=== PATIENT | female | born 1960 | race Caucasian/White ===

== ENCOUNTER 2017-11-29 14:37 | Emergency (ER) | payer MEDICAID, OTHER ==
[2017-11-29 14:45] VITALS: TEMP 96.8
--- NOTE | 2017-11-29 15:17 | EDPHY ---
HPI/HX/ROS/PE/MDM Narrative: CHIEF COMPLAINT: Left groin pain HPI: The patient is a 57-year-old female with PMH significant for remote DVT who complains of left groin pain and swelling since Thursday. The patient recently drove to [place] from [place] on and had no pain prior to arrival. She denies chest pain or shortness of breath. The patient states she was treated for an intracranial bleed approximately 5 years ago. Family states that the etiology of this bleed was unclear - she had suffered some minor head trauma 18 months prior to the bleed, but no clear etiology for the bleed was identified. She is not currently on anticoagulants. No rash, no fever or chills. REVIEW OF SYSTEMS: Aside from elements discussed in the HPI, a comprehensive 10-point review of systems was reviewed and is negative. PMH: Includes history of oligodendroglioma treated with radiation and chemotherapy. Also history of intracranial bleed requiring surgery approximately 5 years ago. DVT in remote past related to . SOCIAL HISTORY: , lives in [place]. Denies drug abuse. PHYSICAL EXAM: General:Patient is alert, in no acute distress. ENT:Eyes are normal to inspection. ENT inspection normal. Neck: Normal inspection. Full range of motion. Respiratory:No respiratory distress. Breath sounds normal bilaterally. Cardiovascular: Regular rate and rhythm. Strong peripheral pulses. Normal cap refill. Abdomen:The abdomen is nontender to palpation. There are no peritoneal signs. There are normal bowel sounds. Back: Normal to inspection. No tenderness to palpation. Skin: Normal color. No rash. Warm and dry. Extremities: Normal appearance. Full range of motion. Tenderness to palpation is present in the upper medial groin. No skin changes. No abscess. Neuro: Oriented x3. Normal motor function. Normal sensory function. ED Course: 1550: US read by Dr. Cha as positive for DVT L common femoral and L iliac. Consulted with Dr. Nicole, neurosurgeon, regarding this patient. See note in MDM. 1646: Reassessed patient and discussed imaging findings. I have also discussed plan to follow up with her PCP when she returns home. She is comfortable with this plan. 1655: Consulted with pharmacy regarding anticoagulation for this patient. 1708: Reassessed patient and discussed Xarelto prescription; her first dose will be given in the ED prior to discharge. MDM: This patient presents with two complicated situations, one medical and one logistical. From a medical perspective, the patient presents with signs and sx of DVT, confirmed by US. I suspect this is related to recent long car trip. She has no signs or sx to suggest PE. She therefore is a good candidate for outpatient anticoagulant therapy. 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 This obviously raises risk of risk of recurrent bleed if placed on anticoagulation. I consulted Dr. Shirin Nicole from [facility] and discussed situation - she recommends proceeding with anticoagulation given that it has been 3-5 years. I had an extensive discussion with the patient and her regarding this risk as well as our recommendation to proceed with therapy - they are in agreement with plan and understand risks and benefits. Ideally, the patient would be started on a reversible anticoagulant, such as coumadin with a LMWH bridge, but logistically, patient is visiting from [place] and will be here for at least a month, making it difficult for her PCP to coordinate care and provide close INR monitoring. I therefore think a novel anticoagulatn such as Xarelto would be a better choice. I spent a long period of time on the phone with her insurance company to try an assess which medication would be covered, but they will apparently not cover the appropriate starting dose of Eliquis, and Xarelto will require a pre-auth letter, which I cannot provide. In discussion with the patient, we agreed on a plan to give her a dose of Xarelto here tonight, and for them to call their PCP tomorrow morning to get him on board and try to help with long-term planning. We discussed strict return precautions. Patient requested Ativan rx for anxiety. - Data Points Imaging Results: Imaging Impressions Extremity Venous Study 11/29/17 15:15 Impression: 1. Acute deep venous thrombosis involving the left common femoral, left external and common iliac veins, and possibly nonocclusive clot in the inferior aspect of the inferior vena cava. 2. Superficial thrombophlebitis involving the gastrocnemius veins in the left calf. Findings discussed with emergency department physician, Milton Burnett MD on November 29, 2017 at 3:55 p.m. Imaging: Discussed imaging studies w/ x ray consultant Radiologist, I viewed and interpreted images myself Laboratory Results: 11/29/17 11/29/17 11/29/17 16:45 15:45 15:45 WBC Pending RBC Pending Hgb Pending Hct Pending MCV Pending MCH Pending MCHC Pending RDW Pending Plt Count Pending MPV Pending Neut % (Auto) Pending Lymph % (Auto) Pending [place] % (Auto) Pending Eos % (Auto) Pending Baso % (Auto) Pending Nucleat RBC Rel Count Pending Absolute Neuts (auto) Pending Absolute Lymphs (auto) Pending Absolute Monos (auto) Pending Absolute Eos (auto) Pending Absolute Basos (auto) Pending Absolute Nucleated RBC Pending Immature Gran % Pending Immature Gran # Pending PT INR APTT Fibrinogen D-Dimer Protein C Activity Pending Protein S Activity Pending Antithrombin III Activ Pending Factor V Leiden Mutat Pending Factor V Leiden Interp Pending Fact V Leiden Review By Pending Sodium Pending Potassium Pending Chloride Pending Carbon Dioxide Pending Anion Gap Pending BUN Pending Creatinine Pending Estimated GFR Pending Glucose Pending Calcium Pending Anti-Cardiolipin IgG Ab Pending Anti-Cardiolipin IgM Ab Pending 11/29/17 15:45 WBC RBC Hgb Hct MCV MCH MCHC RDW Plt Count MPV Neut % (Auto) Lymph % (Auto) [place] % (Auto) Eos % (Auto) Baso % (Auto) Nucleat RBC Rel Count Absolute Neuts (auto) Absolute Lymphs (auto) Absolute Monos (auto) Absolute Eos (auto) Absolute Basos (auto) Absolute Nucleated RBC Immature Gran % Immature Gran # PT 12.8 SEC SEC (12.0-15.0) INR 0.94 (0.83-1.16) APTT 24.0 SEC SEC (23.0-38.0) Fibrinogen 269 mg/dL mg/dL (214-456) D-Dimer 3.16 ug/mLFEU H ug/mLFEU (0.00-0.50) Protein C Activity Protein S Activity Antithrombin III Activ Factor V Leiden Mutat Factor V Leiden Interp Fact V Leiden Review By Sodium Potassium Chloride Carbon Dioxide Anion Gap BUN Creatinine Estimated GFR Glucose Calcium Anti-Cardiolipin IgG Ab Anti-Cardiolipin IgM Ab Medications Given: Discontinued Medications Rivaroxaban (Xarelto) 15 mg PO EDNOW ONE Stop: 11/29/17 17:09 Last Admin: 11/29/17 17:14 Dose: 15 mg General Time Seen by Provider: 11/29/17 15:05 Initial Vital Signs: Initial Vital Signs Temperature (C) 36.0 C 11/29/17 14:41 Heart Rate 77 11/29/17 14:41 Respiratory Rate 16 11/29/17 14:41 Blood Pressure 132/86 H 11/29/17 14:41 O2 Sat (%) 97 11/29/17 14:41 O2 Delivery Mode Room Air Allergies/Adverse Reactions: phenytoin [From Dilantin] Allergy (Verified 11/29/17 14:39) Home Medications: Medication Instructions Recorded Keppra 11/29/17 LORazepam [Ativan (*)] 1 mg PO BID PRN #10 tab 11/29/17 Levothyroxine 11/29/17 Rivaroxaban [Xarelto 15mg (*)] 15 mg PO BID #20 tab 11/29/17 Departure - Departure Disposition: Home, Routine, Self-Care Clinical Impression: DVT (deep venous thrombosis), Dvt femoral (deep venous thrombosis) Condition: Good Instructions: Rivaroxaban (By mouth), Deep Vein Thrombosis (ED) Additional Instructions: Take Xarelto as prescribed for your DVT. Stop taking Aspirin. Take Ativan as prescribed for anxiety. Follow up with your primary care provider as soon as you return home. Return to the emergency department for worsening pain, chest pain, shortness of breath, swelling, numbness, weakness or other concerns. Referrals: [facility],. [Clinic] - As per Instructions Prescriptions: LORazepam [Ativan (*)] 1 mg PO BID PRN #10 tab PRN Reason: Anxiety Rivaroxaban [Xarelto 15mg (*)] 15 mg PO BID #20 tab Report Scribed for: Milton Burnett Report Scribed by: Shiloh Cortez Date of Report: 11/29/17 Time of Report: 16:51 Physician Review and Approval Statement: Portions of this note were transcribed by an ED scribe. I personally performed the history, physical exam, and medical decision making; and confirm the accuracy of the information in the transcribed note.
[2017-11-29 17:06] VITALS: PULSE 73; RESP 106; O2SAT 98
[2017-11-29] MEDS ORDERED: RIVAROXABAN 15 MG TAB PO ONE (17:08)
[2017-11-29 17:17] LABS: INR 0.94 (0.83-1.16); PROTIME(PATIENT) 12.8 SEC (12.0-15.0)
[2017-11-29 17:30] LABS: PLATELET COUNT 185 10^3/uL (150-400)
[2017-11-29 17:38] VITALS: BP 142/102
== END 2017-11-29 17:38 | disposition home or self-care (01) ==
DX: I82.412 Acute embolism and thrombosis of left femoral vein (principal)
CPT/HCPCS: 85300-90; 85303-90; 85306-90; 86147-90